=== PATIENT | male | born 1990 | race Caucasian/White ===

== ENCOUNTER → 2020-01-20 | Outpatient (CLI) | payer OTHER ==
--- NOTE | 2020-01-20 09:49 | REP ---
Lumbar spine five views: There are no comparisons. Vertebral body heights, interspacing alignment are normal. The pedicles, facets and sacroiliac articulations are unremarkable. The There is no spondylolysis. There is no spondylolisthesis. Impression: Essentially negative plain film study of the lumbar spine. Electronically Signed by Gigi Lobato MD 01/20/2020 09:41 A
== END ==
LOC: M WUC 09:08
PROVIDERS: ATTEND Family Medicine
DX: M54.5 Low back pain (principal)

== ENCOUNTER 2020-05-21 14:37 | Inpatient (IN) | payer OTHER ==
[~2020-05-21] VITALS: Ht 185.4 cm; Wt 96.5 kg
[2020-05-21] MEDS ORDERED: ISOVUE-370 76% 100ML VIAL As Ordered ONE (14:52)
[2020-05-21] MEDS ORDERED: AMOX500C PO (14:55)
[2020-05-21] MEDS: MORPHINE 4 MG/ML 1ML VIAL/SYRINGE (J2270) IV PRN ×2 (14:58→15:55)
[2020-05-21 15:32] LABS: BASO # 0.1 10^3/uL (0.0-0.2); BASO % 0.2 % (0.0-1.0); EOS % 0.2 % (0.0-3.0); HEMATOCRIT 41.4 % (42.0-52.0); HEMOGLOBIN 14.3 g/dl (13.5-17.5); LYMPH % 9.9 % (24.0-44.0); MEAN CORPUSCULAR HEMOGLOBIN 32.1 pg (27.0-33.0); MEAN CORPUSCULAR HGB CONC 34.5 g/dl (32.0-36.5); MEAN CORPUSCULAR VOLUME 92.8 fl (80.0-96.0); MONO # 1.3 10^3/uL (0.0-0.8); MONO % 6.5 % (0.0-5.0); NEUTROPHILS # 16.9 10^3/uL (1.5-8.5); NEUTROPHILS % 82.6 % (36.0-66.0); PLATELET COUNT, AUTOMATED 176 10^3/uL (150-450); RED BLOOD COUNT 4.46 10^6/uL (4.30-6.10); WHITE BLOOD COUNT 20.5 10^3/uL (4.0-10.0)
[2020-05-21 15:43] LABS: INR 1.12; PROTHROMBIN TIME 14.1 SECONDS (11.8-14.0)
[2020-05-21 15:44] LABS: PARTIAL THROMBOPLASTIN TIME 23.6 SECONDS (25.0-38.4)
[2020-05-21 15:49] LABS: ALBUMIN 4.2 GM/DL (3.2-5.2); ALT/SGPT 51 U/L (12-78); AMYLASE 74 U/L (25-115); BILIRUBIN,DIRECT 0.2 MG/DL (0.0-0.2); BILIRUBIN,TOTAL 0.6 MG/DL (0.2-1.0); BLOOD UREA NITROGEN 17 MG/DL (7-18); CALCIUM LEVEL 8.6 MG/DL (8.5-10.1); CARBON DIOXIDE LEVEL 26 MEQ/L (21-32); CHLORIDE LEVEL 106 MEQ/L (98-107); CK-MB VALUE MASS 17.3 NG/ML (<3.6); CPK CREATINE PHOSPHOKINASE 558 U/L (39-308); CREATININE FOR GFR 1.02 MG/DL (0.70-1.30); ETHYL ALCOHOL (ETHANOL) < 0.003 % (0.000-0.010); GLOMERULAR FILTRATION RATE > 60.0 (>60); GLUCOSE, FASTING 117 MG/DL (70-100); LIPASE 269 U/L (73-393); POTASSIUM SERUM 3.1 MEQ/L (3.5-5.1); SODIUM LEVEL 141 MEQ/L (136-145); TOTAL PROTEIN 7.3 GM/DL (6.4-8.2); TROPONIN I < 0.02 NG/ML (< 0.10)
--- NOTE | 2020-05-21 15:57 | REP ---
CT brain: 05/21/2020. Indication: Head trauma. Technique: Unenhanced axial CT images of the brain were obtained from skull base to vertex with coronal reconstructions provided. Comparison: None. Findings: Image quality is degraded by patient motion. There is no evidence of intracranial hemorrhage, acute cortical infarction, mass effect, hydrocephalus or acute calvarial fracture. Impression: No acute intracranial process. Electronically Signed by Kris Monk DO 05/21/2020 03:49 P
[2020-05-21] MEDS ORDERED: MORPHINE 4 MG/ML 1ML VIAL/SYRINGE (J2270) IV ONE (16:00)
[2020-05-21] MEDS ORDERED: NS 1,000 ML IV ONE (16:00)
--- NOTE | 2020-05-21 16:09 | REP ---
CT cervical spine: 05/21/2020. Indication: Cervical spine trauma. Technique: Unenhanced axial CT images of the cervical spine were performed with coronal and sagittal reconstructions provided. Comparison: None. Findings: There is no acute fracture, subluxation or dislocation. No hemorrhage or additional acute post traumatic sequelae are detected within the spinal canal. Vertebral body alignment is within anatomic limits. Impression: No acute osseous injury of the cervical spine. Electronically Signed by Kris Monk DO 05/21/2020 04:01 P
[2020-05-21] MEDS ORDERED: LIDOCAINE W/EPINEPHRINE 1% 20ML VIAL SC ONE (16:15)
--- NOTE | 2020-05-21 16:54 | REP ---
Portable chest x-ray: Single view. History: Trauma. Findings: Monitoring electrodes are seen. The lungs are well inflated and free of infiltrate. The pleural angles are sharp. Cardiomediastinal silhouette is unremarkable. No bony abnormality is seen. Impression: No active disease. Electronically Signed by Ben Cameron MD 05/21/2020 04:45 P
--- NOTE | 2020-05-21 17:27 | REP ---
REASON: Trauma. PRIORS: None. Contrast 100 mL Isovue 370. There is no mediastinal or hilar mass or adenopathy. There are no pleural or pericardial effusions. The imaged osseous structures are within normal limits. The imaged lung bran are within normal limits. There are bilateral dependent subsegmental atelectatic changes. IMPRESSION: CT findings are within normal limits. Electronically Signed by Jr Tan DO 05/22/2020 08:17 A
[2020-05-21] MEDS ORDERED: NS 1,000 ML IV SCH (18:14)
[2020-05-21] MEDS ORDERED: NORCO, ANEXSIA 5/325MG TABLET (HYDROcodone/ACETAMINOPHEN) PO PRN (18:15)
[2020-05-21] MEDS ORDERED: MORPHINE 2 MG/ML 1ML VIAL (J2270) IV PRN ×2 (18:15→23:00)
[2020-05-21] MEDS ORDERED: BISACODYL 10 MG SUPP PR PRN (18:15)
[2020-05-21] MEDS ORDERED: KETOROLAC 30 MG/ML 1ML VIAL IV PRN ×2 (18:15→22:30)
[2020-05-21] MEDS ORDERED: ONDANSETRON 4MG/2ML VIAL IV PRN ×3 (18:15→23:00)
[2020-05-21] MEDS ORDERED: MOM 30ML SUSPENSION UDC PO PRN (18:15)
[2020-05-21] MEDS ORDERED: ACETAMINOPHEN TAB 650MG DOSE (2X325MG) PO PRN ×2 (18:15→23:00)
[2020-05-21] MEDS ORDERED: BACITRACIN OINTMENT 30GM TUBE TOP STA (18:37)
[2020-05-21] MEDS ORDERED: NEOSPORIN OINT 0.9 GM PKT As Ordered ONE (18:42)
[2020-05-21] MEDS ORDERED: propofoL 200 MG/20 ML VIAL As Ordered ONE ×4 (19:08→22:06)
[2020-05-21] MEDS ORDERED: LIDOCAINE 2% 100MG/5ML SDV (FOR ANES.) As Ordered ONE (19:08)
[2020-05-21] MEDS ORDERED: fentaNYL 100 MCG/2 ML INJECTION (J3010) As Ordered ONE ×2 (19:09→21:19)
[2020-05-21] MEDS ORDERED: MIDAZOLAM INJ 2MG/2ML VIAL (J2250 PER 1MG) As Ordered ONE ×3 (19:09→21:19)
[2020-05-21] MEDS ORDERED: dexameTHASONE 4 MG/ML 1ML VIAL (J1100 PER 1MG) As Ordered ONE (19:10)
[2020-05-21] MEDS ORDERED: ONDANSETRON 4MG/2ML VIAL As Ordered ONE (19:10)
[2020-05-21] MEDS ORDERED: ceFAZolin 1GM VIAL (J0690 PER 500MG) As Ordered ONE (19:55)
[2020-05-21] MEDS ORDERED: BUPIVACAINE/DEXTROSE 0.75% 2 ML AMP As Ordered ONE (20:01)
[2020-05-21] MEDS ORDERED: ceFAZolin 2 GM/D5W 50 ML IV BAG (J0690 PER 500MG) As Ordered ONE (20:24)
[2020-05-21] MEDS ORDERED: BUPIVACAINE/EPIN 0.25% 30 ML VIAL As Ordered ONE (20:25)
--- NOTE | 2020-05-21 20:39 | ECGEPIP ---
[facility] - ED Test Date: 2020-05-21 Pat Name: JERI BRYANT Department: Room: - Gender: Male Clinical Appeals Auditor: itzel : 1990 Requested By: KAREN HOFFMAN Order Number: [id number] Reading MD: Clayton Eric Measurements Intervals [place] Rate: 94 P: 72 SD: 145 QRS: 51 QRSD: 100 T: 54 QT: 349 QTc: 438 Interpretive Statements SINUS RHYTHM POOR R WAVE PROGRESSION INCOMPLETE RIGHT BUNDLE BRANCH BLOCK NO PRIORS FOR COMPARISON Electronically Signed on 05-21-2020 20:39:14 EDT by Clayton Eric
[2020-05-21] MEDS ORDERED: propofoL 500 MG/50 ML VIAL As Ordered ONE (21:08)
[2020-05-21] MEDS ORDERED: LR 1,000 ML IV SCH ×2 (22:30→23:00)
[2020-05-21] MEDS ORDERED: oxyCODONE 5MG TAB PO PRN (22:30)
[2020-05-21] MEDS ORDERED: fentaNYL 100 MCG/2 ML INJECTION (J3010) IV PRN (22:30)
[2020-05-21] MEDS ORDERED: KETOROLAC 60MG 2ML VIAL As Ordered ONE (22:32)
[2020-05-21] MEDS ORDERED: MEPERIDINE INJ 25 MG/ML VIAL (J2175) As Ordered ONE (22:42)
[2020-05-21] MEDS: MEPERIDINE INJ 25 MG/ML VIAL (J2175) IV PRN ×2 (22:45→22:56)
[2020-05-21] MEDS ORDERED: oxyCODONE 5MG TAB As Ordered ONE (22:59)
[2020-05-21] MEDS ORDERED: PERCOCET 5MG/325MG TAB PO PRN (23:00)
--- NOTE | 2020-05-21 23:29 | REP ---
RIGHT ANKLE, TWO VIEWS: HISTORY: Post reduction views. Comparison is made with earlier right ankle radiographs showing fracture-dislocation. FINDINGS: AP and lateral views in plaster demonstrate improved alignment with persistent lateral and moderate subluxation of the talus relative to the tibial plafond. A displaced medial malleolar fracture is seen. There is comminuted and somewhat displaced distal fibular diaphyseal fracture again noted. No definite posterior malleolar fracture is seen. IMPRESSION: Improved alignment. Subluxation persists at the ankle. Medial malleolar and distal fibular fractures are again seen. Electronically Signed by Ben Cameron MD 05/22/2020 07:57 A
[2020-05-21 23:30] VITALS: BP 132/75
--- NOTE | 2020-05-21 23:35 | REP ---
REASON: Trauma. PRIORS: None. CONTRAST: 100 mL Isovue-370. As per the protocol, bowel contrast was withheld. The liver, gallbladder, spleen, pancreas, adrenal glands, and kidneys are within normal limits. The intra-abdominal and intrapelvic bowel loops and their mesenteries are within normal limits. There is no free fluid or free air in the abdomen or pelvis. The abdominal aorta and para-aortic regions are within normal limits. Bone window technique throughout the examination shows no evidence of a fracture or other significant osseous abnormality. IMPRESSION: CT findings are within normal limits. Electronically Signed by Jr Tan DO 05/22/2020 08:17 A
[2020-05-22] VITALS: BP 115/75
[2020-05-22 00:30] VITALS: BP 116/76
--- NOTE | 2020-05-22 00:44 | REP ---
RIGHT ANKLE, TWO VIEWS: Two views right ankle performed. There is fracture of the distal tibia with lateral dislocation of the talus. The medial malleolus is fractured and is laterally displaced with the talus. Chip fractures are seen along the talar dome, which may originate from the distal end of the tibia. There is a comminuted fracture of the distal fibula with lateral displacement as well as lateral and posterior angulation. Electronically Signed by Gigi Uribe MD 05/22/2020 09:49 A
--- NOTE | 2020-05-22 01:24 | REP ---
RIGHT ANKLE, TWO VIEWS: Two views right ankle performed and compared to prior exam earlier this same day. Comminuted fracture of the distal fibula is again noted with no change in mild lateral displacement. Fracture of the distal tibia is again noted. The lateral displacement of the talus has mildly decreased compared to the prior study. There is an overlying splint. Electronically Signed by Gigi Uribe MD 05/22/2020 09:51 A
[2020-05-22 01:30] VITALS: BP 111/53
[2020-05-22 02:30] VITALS: BP 112/54
[2020-05-22 03:30] VITALS: BP 108/55
[2020-05-22 06:00] VITALS: BP 127/76
[2020-05-22] MEDS ORDERED: ASPI81TA86 PO (06:07)
--- NOTE | 2020-05-22 07:28 | HPE ---
DATE OF ADMISSION: 05/21/2020 CHIEF COMPLAINT: Right ankle fracture. HISTORY OF PRESENT ILLNESS: This 30-year-old man was on a job site. He works as a building construction contractor. He had a trestle, which is a large part of roof material, fall on his right ankle. He sustained an ankle fracture dislocation. This was seen by the emergency department physician collection agent. They performed closed reduction. The closed reduction was still subluxed laterally and so I urgently came to the emergency department to see the patient. I removed the splint to see the patient. There was no obvious loss of consciousness. The patient had been seen and cleared by the trauma team surgeon Dr. Fernandes. PAST MEDICAL HISTORY: None. MEDICATIONS: None. ALLERGIES: AMOXICILLIN. PAST SURGICAL HISTORY: None. SOCIAL HISTORY: He is a building construction contractor. Appears otherwise healthy. He does smoke, 15 cigarettes a day. PHYSICAL EXAMINATION: Well-appearing 30-year-old man. There is laceration sutured of his scalp as well as a superficial laceration of the right shoulder. He moves all other joints actively and passively without pain. He has an obvious deformity of his right ankle. I removed the splint. I tried to keep the ankle in line. There was some mild small blistering to the medial malleolus transverse for approximately 2 cm. Normal sensation and motor function of the foot. He is able to wiggle his toes. Strong dorsalis pedis pulse. The foot is well perfused. No pain at the knee. Compartments are soft in the calf. IMAGING: Radiographs were reviewed of the right ankle. This shows an obvious syndesmosis injury. There is a high fibula fracture Lobato C. There is a medial malleolus transverse fracture. The talus is completely dislocated laterally. There is a post reduction radiograph after the emergency room physician intervention. This showed the talus to be under the tibia but still subluxed laterally. Repeat radiographs were obtained after my own personal attempt at repeat reduction and again the medial malleolus fragment appears entrapped and blocking the reduction of the talus. ASSESSMENT/PLAN: This 30-year-old man has an extremely unstable ankle fracture. Unfortunately, I was not able to achieve a closed reduction due to a trapped medial malleolus fragment. I recommended surgical intervention for open reduction internal fixation as an appropriate reduction was not able to be achieved through closed means. I will perform this tonight. This is an emergency case. We discussed the pros, cons, risks, benefits of nonsurgical management versus surgery. Risks of surgery include but are not limited to infection, pain, stiffness, bleeding, damage to surrounding structures, weakness, bleeding, delayed, mal or nonunion, long-term risk of ankle osteoarthritis, ankle instability due to syndesmosis injury, possible need for plate removal or hardware removal, hardware related complications, anesthetic complications, blood clots, , other risks, and need for further surgery. He wished to ahead and we signed the consent for surgery as well as possible need for blood products and I explained the pros and cons and risks and benefits of that to him. I marked the right lower extremity. I encouraged him to keep it elevated for now. I have submitted the case to the operating room theater and made the patient nothing by mouth (n.p.o.). I will place admission orders into the computer as well.
--- NOTE | 2020-05-22 09:00 | REP ---
RIGHT ANKLE: SIX VIEWS. HISTORY: Right ankle fracture. Intraoperative imaging. Comparison radiographs are from earlier on May 21, 2020. FINDINGS: A sequence of six last image hold fluoroscopically obtained spot radiographs of the right ankle document open reduction internal fixation of a fracture-dislocation at the right ankle. 1 minute 32 seconds of fluoroscopy time is reported. Electronically Signed by Ben Camreon MD 05/22/2020 10:33 A
--- NOTE | 2020-05-22 10:18 | RO ---
DATE OF PROCEDURE: 05/21/2020 PREOPERATIVE DIAGNOSIS: Right ankle fracture. POSTOPERATIVE DIAGNOSIS: Right ankle fracture. PLANNED PROCEDURE: Right ankle open reduction and internal fixation (ORIF). PROCEDURE PERFORMED: Right ankle open reduction and internal fixation (ORIF). SURGEON: Charles Carr MD CERTIFIED FRAUD EXAMINER: OPERATIVE PREAMBLE: This pleasant 30-year-old man had a trusse fall on his right ankle. He sustained a closed unstable bimalleolar ankle fracture. It is an obvious syndesmosis injury. We discussed the pros, cons, risks, benefits of going ahead with surgery. I reiterated the risks in preoperative holding and marked the right lower extremity and proceeded to surgery. OPERATIVE REPORT: The patient was brought to the operating theater. They were placed supine on the operating room table. 2 grams of intravenous (IV) Ancef was administered. Spinal anesthesia with sedation was introduced by the anesthetic team. Bump was used under the right hip. A 34-inch tourniquet was applied to the right thigh. Bone foam leg positioner was employed to elevate the leg. All bony prominences were padded. The limb was prepped and draped in the usual sterile fashion, allowing over 3 minutes prep solution drying time. Preoperative time-out was performed to confirm the site, the patient, and the surgery. I began by examining the limb. Elevated the tourniquet to 250 mmHg. Total tourniquet time 75 minutes. I began by making a standard straight lateral incision overlying the fibula at fracture site and carrying this down distally through skin and subcutaneous tissue to meticulous hemostasis. Identified the fracture site. I cleared away any interposed hematoma. I protected the superficial peroneal nerve. I achieved reduction of this fracture site using a combination of a direct manipulation with alligator forceps, as well as pointed reduction forceps. I used a one-third tubular 12-hole Synthes plate. I precontoured this to the lateral side of the fibula. I fixed this proximally and distally, as there was a moderate degree of comminution at the fracture site. I achieved proper length. I took intraoperative radiographs. I confirmed this through direct visualization of the fracture to achieve proper length, as well as the so-called "dime sign" distally to ensure proper length of the fibula. I kept the two holes at the syndesmosis free. I then turned my attention medially. I made a small longitudinal medial incision. I carried this dissection down through skin and subcutaneous tissue. I protected the saphenous vein. I retracted this posteriorly. I cleaned away any interposed fracture hematoma in periosteum. I used a 2.0-mm drill to drill a small hole proximal to the fracture site. I used the fracture reduction forceps to achieve anatomic reduction. I visualized this anteriorly, posteriorly, and direct medially. I also took intraoperative radiographs to ensure anatomic reduction. I then used the wires, ensuring that they stayed away from the joint. They were parallel on AP and lateral radiographs to fix the medial malleolus. I overdrilled the near cortex and then used two 4.0 partially-threaded cancellous screws. Both measured 46 mm in length. This achieved good anatomic reduction. I then turned my attention to the syndesmosis. I drilled using the 2.5-mm drill, aiming slightly anteriorly in line with the joint. I kept these 1.5-3 cm above the level of the ankle joint to the syndesmosis. I ensured that the syndesmosis was anatomically reduced. I used finger clamping at the syndesmosis but not overreducing it. I ensured that it was properly reduced in the groove through direct visualization, as well. I took contralateral radiographs, as well, to compare the syndesmosis on the other side, as well. I passed two 60-mm long 3.5 mm fully-threaded cortical screws in a tricortical fashion. This achieved good reduction of the syndesmosis, and it was stable and fixed without being overtightened. I then thoroughly irrigated the wounds. The tourniquet was taken down. The subcutaneous tissues closed with interrupted 2-0 Vicryl sutures. Skin was cleaned with wet and dry dressing. Lillie were used to close the skin. 10 mL of 0.25% Marcaine with 1:100,000 epinephrine instilled around the incision sites. Adaptic, 4 x 8 gauze, as well as ABD dressing were then placed with a sterile below-knee cast padding applied. Three-sided plaster of Liz splint was placed and then the splint allowed to harden with the foot in neutral and overwrapped with sterile 6-inch Issa bandages. The patient was woken up from their light sedation. They were transferred off the operating room table and taken to the postanesthetic care unit in stable condition. All sponge, needle, instrument counts were correct. No complications. PLAN: For the patient is to be discharged home according to day surgery criteria as long as they are comfortable. Prescription has been placed on the chart for oral Percocet twenty tablets of 5/325 mg. They will followup in the office in 2 weeks' time. They will be made strict nonweightbearing. ESTIMATED BLOOD LOSS: 30 mL.
--- NOTE | 2020-06-02 13:24 | DSES ---
DATE OF ADMISSION: 05/21/2020 DATE OF DISCHARGE: 05/22/2020 ATTENDING PHYSICIAN: Charles Carr MD ADMISSION DIAGNOSIS: 1. Unstable right ankle fracture. OTHER DIAGNOSES: 1. None. DISCHARGE DIAGNOSIS: 1. Right ankle fracture status post open reduction internal fixation. OPERATION PERFORMED: Right ankle open reduction internal fixation. 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 This was uneventful. He did well in the postoperative period. His hospital course was without complications. His has pain was controlled on the day of discharge. He was doing well. He will resume his preoperative medications and diet along with oral pain medications for pain control. He was given instructions to include but not limited to wound monitoring activity limitations. He will followup in our office for 10-14 days for surgical followup. Please refer the medical records for further details
== END 2020-05-22 09:47 | disposition home or self-care (01) | DRG 313 ==
LOC: EDBD 14:37 → M ED 14:37 → M ED INP 18:14 → ENRESERV 19:06 → M MS5PR 23:30
PROVIDERS: ADMIT Orthopaedic Surgery Sports Medicine; ATTEND Orthopaedic Surgery Sports Medicine
PROC: 0QSJ04Z Reposition Right Fibula with Internal Fixation Device, Open Approach (ICD-10-PCS; principal; 2020-05-21 19:30)
DX: S82.841A Displaced bimalleolar fracture of right lower leg, initial encounter for closed fracture (principal); F17.210 Nicotine dependence, cigarettes, uncomplicated; W20.1XXA Struck by object due to collapse of building, initial encounter; Y92.89 Other specified places as the place of occurrence of the external cause; Y99.0 Civilian activity done for income or pay; Y93.H3 Activity, building and construction; S01.91XA Laceration without foreign body of unspecified part of head, initial encounter; Z11.59 Encounter for screening for other viral diseases

== ENCOUNTER → 2021-11-18 | Outpatient (CLI) | payer OTHER ==
[~2021-11-18] MED LIST: AMOX500C PO; ASPI81TA86 PO
--- NOTE | 2021-12-02 12:58 | REP ---
INDICATION: LBP. COMPARISON: 12/15/2020. TECHNIQUE: Sagittal and axial imaging sequences obtained. FINDINGS: There is no compression fracture or malalignment, with normal lumbar lordosis. There is loss of water signal and disc degeneration again noted at L4-5 with mild disc space narrowing. There are degenerative Modic type 1 and 2 signal changes at the inferior endplate of L4 and superior endplate of L5, increased when compared to the prior study. There is partial sacralization of L5. The conus is unremarkable. At L1-2 and L2-3 there is no significant disc bulging or herniation. There is no spinal stenosis or foraminal narrowing. At L3-4 there is mild diffuse disc bulging. This slightly indents the anterior thecal sac. There is moderate facet arthropathy. There is not significant foraminal narrowing. At L4-5 there is moderate diffuse posterior disc herniation, most prominent in the midline, with resultant thecal sac compression. This is unchanged. There is moderate bilateral facet arthropathy. There is moderate bilateral foraminal and lateral recess stenosis. At L5-S1 there is no significant disc bulge or herniation. There is no spinal stenosis or foraminal narrowing. There is moderate facet arthropathy. IMPRESSION: At L4-5 there is moderate diffuse posterior disc herniation, most prominent in the midline. This is unchanged. There is moderate bilateral facet arthropathy. There is moderate bilateral foraminal and lateral recess stenosis. There is loss of water signal and disc degeneration again noted at L4-5 with mild disc space narrowing. There are degenerative signal changes at the inferior endplate of L4 and superior endplate of L5, increased when compared to the prior study. This is compatible with both chronic and ongoing irritation and granulation response. <Electronically signed by Gigi Uribe > 12/02/21 1381
== END ==
LOC: M RAD 09:37
PROVIDERS: ATTEND Orthopaedic Surgery
DX: M48.061 Spinal stenosis, lumbar region without neurogenic claudication (principal); M51.26 Other intervertebral disc displacement, lumbar region

== ENCOUNTER → 2023-08-02 | Outpatient (REF) | payer OTHER | LOC: M LAB REF 16:09 | PROVIDERS: ATTEND Physician Assistant | DX: L05.01 Pilonidal cyst with abscess (principal) ==

== ENCOUNTER → 2024-04-02 | Outpatient (CLI) | payer OTHER | LOC: M WUC 14:13 | PROVIDERS: ATTEND Student in an Organized Health Care Education/Training Program | DX: M25.541 Pain in joints of right hand (principal) ==